=== PATIENT | female | born 2000 | race Hispanic/Latino ===

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

== ENCOUNTER 2021-09-03 00:52 | Emergency (ER) | payer OTHER ==
[2021-09-03 01:24] LABS: Pregnancy Test - Urine (BHCG) Negative (Negative); Pregu Control Background? CLEAR/WHITE (CLR/WHITE); Pregu Control Bar Appear? YES (CONTROL BAR); Specific Gravity 1.024 (1.002-1.036)
[2021-09-03 01:25] LABS: Bilirubin Negative (Negative); Blood, Urine Negative (Negative); Clarity Clear (Clear); Glucose, Urine (Dipstick) Negative (Negative); Ketone, Urine Trace mg/dL (Negative); Leukocyte Trace (Negative); Nitrite Negative (Negative); Protein, Urine (Dipstick) Negative (Neg-Trace); Specific Gravity, Urine 1.025 (1.005-1.030); Urobilinogen 0.2 mg/dL (Less than 2)
[2021-09-03 01:28] LABS: Bacteria/HPF Rare-Few HPF (None Seen); RBC/HPF 0-3 HPF (0-3); WBC/HPF 0-3 HPF (0-3)
[2021-09-03] MEDS ORDERED: Dicyclomine 20 MG/2 ML VIAL ONE (01:30)
== END 2021-09-03 01:50 | disposition home or self-care (01) ==
LOC: NAV ERS 00:52
DX: R10.10 Upper abdominal pain, unspecified (principal)
CPT/HCPCS: 81003; 81015; 81025; 99284; J0500

== ENCOUNTER 2021-10-06 11:59 | Emergency (ER) | payer OTHER ==
[2021-10-06 12:33] LABS: Bilirubin Negative (Negative); Blood, Urine Trace (Negative); Clarity Clear (Clear); Glucose, Urine (Dipstick) Negative (Negative); Ketone, Urine Negative (Negative); Leukocyte Trace (Negative); Nitrite Negative (Negative); Pregnancy Test - Urine (BHCG) Negative (Negative); Pregu Control Background? CLEAR/WHITE (CLR/WHITE); Pregu Control Bar Appear? YES (CONTROL BAR); Protein, Urine (Dipstick) Negative (Neg-Trace); pH, Urine 8.5 (5.0-9.0)
[2021-10-06 12:40] LABS: Bacteria/HPF 1+ HPF (None Seen); RBC/HPF 0-3 HPF (0-3); WBC/HPF 0-3 HPF (0-3)
== END 2021-10-06 12:56 | disposition home or self-care (01) ==
LOC: NAV ERS 11:59
DX: R11.0 Nausea (principal); F17.290 Nicotine dependence, other tobacco product, uncomplicated
CPT/HCPCS: 81003; 81015; 81025; 87077; 87086; 99283

== ENCOUNTER 2021-11-02 17:26 | Emergency (ER) | payer OTHER | END 2021-11-02 17:45 | disposition left against medical advice (07) | LOC: NAV ERS 17:26 | DX: Z53.21 Procedure and treatment not carried out due to patient leaving prior to being seen by health care provider (principal) ==

== ENCOUNTER 2021-11-04 18:09 | Emergency (ER) | payer OTHER ==
[2021-11-04 18:34] LABS: Bilirubin Negative (Negative); Blood, Urine Negative (Negative); Clarity Turbid (Clear); Glucose, Urine (Dipstick) Negative (Negative); Ketone, Urine Negative (Negative); Leukocyte Trace (Negative); Nitrite Negative (Negative); Protein, Urine (Dipstick) Negative (Neg-Trace); Urobilinogen 0.2 mg/dL (Less than 2)
[2021-11-04 18:37] LABS: Pregnancy Test - Urine (BHCG) POSITIVE (Negative); Pregu Control Background? CLEAR/WHITE (CLR/WHITE); Pregu Control Bar Appear? YES (CONTROL BAR); Specific Gravity 1.026 (1.002-1.036); Specific Gravity, Urine 1.026 (1.002-1.036)
[2021-11-04 18:42] LABS: RBC/HPF 0-3 HPF (0-3); Transitional Epithelial 0-3 HPF (None Seen)
[2021-11-04 18:43] LABS: Bacteria/HPF 1+ HPF (None Seen)
[2021-11-04] MEDS ORDERED: Ondansetron ODT 4 MG TAB ONE (19:02)
[2021-11-04] MEDS ORDERED: Cephalexin 250 MG CAP ONE (19:02)
== END 2021-11-04 19:07 | disposition home or self-care (01) ==
LOC: NAV ERS 18:09
DX: O23.41 Unspecified infection of urinary tract in pregnancy, first trimester (principal); N39.0 Urinary tract infection, site not specified
CPT/HCPCS: 81003; 81015; 81025; 99283; Q0162

== ENCOUNTER 2022-10-16 15:51 | Emergency (ER) | payer OTHER | END 2022-10-16 16:40 | disposition home or self-care (01) | LOC: NAV ERS 15:51 | DX: J06.9 Acute upper respiratory infection, unspecified (principal); F17.210 Nicotine dependence, cigarettes, uncomplicated | CPT/HCPCS: 99283 ==

== ENCOUNTER 2022-12-14 17:21 | Emergency (ER) | payer OTHER ==
[2022-12-14 18:09] LABS: Bilirubin Negative (Negative); Blood, Urine Trace (Negative); Clarity Clear (Clear); Glucose, Urine (Dipstick) Negative (Negative); Ketone, Urine Negative (Negative); Leukocyte Negative (Negative); Nitrite Negative (Negative); Protein, Urine (Dipstick) Trace mg/dL (Neg-Trace); Urobilinogen 0.2 mg/dL (Less than 2); pH, Urine 5.5 (5.0-9.0)
[2022-12-14 18:10] LABS: Pregnancy Test - Urine (BHCG) Negative (Negative); Pregu Control Background? CLEAR/WHITE (CLR/WHITE); Pregu Control Bar Appear? YES (CONTROL BAR); Specific Gravity 1.028 (1.002-1.036); Specific Gravity, Urine 1.028 (1.002-1.036)
[2022-12-14 18:12] LABS: CAUTI Indications for Culture Dysuria,urgency,freq
[2022-12-14 18:15] LABS: Bacteria/HPF Rare-Few HPF (None Seen); Mucous/LPF 1+ LPF (<2+); RBC/HPF 0-3 HPF (0-3); Urine Culture Reflex No No; WBC/HPF 0-3 HPF (0-3)
== END 2022-12-14 18:38 | disposition home or self-care (01) ==
LOC: NAV ERS 17:21
DX: N92.6 Irregular menstruation, unspecified (principal); F17.210 Nicotine dependence, cigarettes, uncomplicated
CPT/HCPCS: 81001; 81025; 99284

== ENCOUNTER 2022-12-18 07:58 | Emergency (ER) | payer OTHER ==
[2022-12-18] MEDS ORDERED: Ibuprofen 200 MG TAB ONE (08:13)
== END 2022-12-18 08:36 | disposition home or self-care (01) ==
LOC: NAV ERS 07:58
DX: S63.636A Sprain of interphalangeal joint of right little finger, initial encounter (principal); D64.9 Anemia, unspecified; F17.210 Nicotine dependence, cigarettes, uncomplicated; X58.XXXA Exposure to other specified factors, initial encounter

== ENCOUNTER 2023-02-12 15:56 | Emergency (ER) | payer OTHER, SELFPAY | END 2023-02-12 16:16 | disposition home or self-care (01) | LOC: NAV ERS 15:56 | DX: S90.562A Insect bite (nonvenomous), left ankle, initial encounter (principal); L03.116 Cellulitis of left lower limb; F17.290 Nicotine dependence, other tobacco product, uncomplicated; W57.XXXA Bitten or stung by nonvenomous insect and other nonvenomous arthropods, initial encounter | CPT/HCPCS: 87070; 87077; 87205; 99283 ==

== ENCOUNTER 2023-02-25 12:50 | Emergency (ER) | payer SELFPAY ==
[2023-02-25] MEDS ORDERED: Acetaminophen 500 MG TAB ONE (13:31)
== END 2023-02-25 13:38 | disposition home or self-care (01) ==
LOC: NAV ERS 12:50
DX: L02.416 Cutaneous abscess of left lower limb (principal); F17.290 Nicotine dependence, other tobacco product, uncomplicated
CPT/HCPCS: 99282

== ENCOUNTER 2023-03-04 08:54 | Emergency (ER) | payer SELFPAY | END 2023-03-04 10:17 | disposition home or self-care (01) | LOC: NAV ERS 08:54 | DX: J06.9 Acute upper respiratory infection, unspecified (principal); F17.290 Nicotine dependence, other tobacco product, uncomplicated | CPT/HCPCS: 87081; 87430; 87804; 99283 ==

== ENCOUNTER 2023-09-19 16:00 | Emergency (ER) | payer SELFPAY ==
[2023-09-19 16:36] LABS: #Basophils 0.1 thou/uL (0.0-0.2); #Eosinphils 0.1 thou/uL (0.0-0.7); #Lymphocytes 1.9 thou/uL (1.20-3.40); #Monocytes 0.5 thou/uL (0.11-0.59); #Neutrophils 3.8 thou/uL (1.40-6.50); %Basophils 1.1 % (0.0-1.0); %Eosinophils 1.6 % (0.0-10.0); %Lymphocytes 29.1 % (21.0-51.0); %Neutrophils 60.2 % (42.0-75.0); Hematocrit 39.2 % (36.0-47.0); Hemoglobin 12.2 g/dL (12.0-16.0); Mean Corpuscular HGB CONC 31.1 g/dL (32.0-36.0); Mean Corpuscular Hemoglobin 26.6 pg (27.0-31.0); Mean Corpuscular Volume 85.4 fl (78.0-98.0); Mean Platelet Volume 8.1 fL (7.4-10.4); Platelet Count 221 10x3/uL (130-400); RBC Distribution Width 13.2 % (11.5-14.5); Red Blood Cell (RBC) Count 4.59 mill/uL (4.20-5.40); White Blood Cell (WBC) Count 6.4 10x3/uL (4.8-10.8)
== END 2023-09-19 18:20 | disposition home or self-care (01) ==
LOC: NAV ERS 16:00
DX: O20.0 Threatened abortion (principal); F17.290 Nicotine dependence, other tobacco product, uncomplicated; Z3A.08 8 weeks gestation of pregnancy
CPT/HCPCS: 84702; 85025; 99284